=== PATIENT | female | born 1965 | race Caucasian/White ===

== ENCOUNTER 2025-06-19 08:36 | Inpatient (IN) | payer BC ==
[2025-06-19 09:39] LABS: #Basophils 0.03 10x3/uL (0.0-0.2); #Eosinophils 0.03 10x3/uL (0.0-0.5); #Monocytes 0.75 10x3/uL (0.0-1.1); #Neutrophils 8.23 10x3/uL (1.5-8.4); %Basophils 0.3 % (0.0-2.0); %Eosinophils 0.3 % (0.0-6.0); %Lymphocytes 4.8 % (18.0-47.0); %Monocytes 7.9 % (0.0-10.0); %Neutrophils 86.4 % (40.0-75.0); Hematocrit 39.2 % (34.9-44.5); Hemoglobin 13.2 g/dL (12.0-15.5); Mean Corpuscular Hemoglobin 30.8 pg (27.0-33.0); Mean Corpuscular Volume 91.4 fL (81.6-98.3); Platelet Count 327 10x3/uL (150-450); Red Blood Cell (RBC) Count 4.29 10x6/uL (3.90-5.03); White Blood Cell (WBC) Count 9.53 10x3/uL (3.5-10.5)
[2025-06-19 09:56] LABS: ALT (SGPT) 12 U/L (Less than 34); AST (SGOT) 14 U/L (11-34); Albumin 3.6 g/dL (3.1-4.5); Alkaline Phosphatase 63 U/L (40-110); Anion Gap 12 mmol/L (10-20); BUN (Urea Nitrogen) 10 mg/dL (9.8-20.1); Bilirubin, Total 0.6 mg/dL (0.3-1.2); Calc. Creatinine Clearance 0 mL/min (70-130); Calcium 8.2 mg/dL (7.8-10.44); Carbon Dioxide 22 mmol/L (22-29); Chloride 109 mmol/L (98-107); Globulin 2.4 g/dL (2.4-3.5); Glucose 105 mg/dL (70-105); Potassium 4.2 mmol/L (3.5-5.1); Sodium 139 mmol/L (136-145)
[2025-06-19 10:00] LABS: Troponin I Less than 0.010 ng/mL (< 0.028)
[2025-06-19] MEDS ORDERED: Iopamidol 300 61% 100 ML VIAL FS ONE (10:09)
[2025-06-19] MEDS ORDERED: Bisacodyl 10 MG SUPP PR PRN (11:50)
[2025-06-19] MEDS ORDERED: Ondansetron PF 4 MG/2 ML Vial IVP PRN (11:50)
[2025-06-19] MEDS ORDERED: Melatonin 3 MG TAB PO PRN (11:50)
[2025-06-19] MEDS ORDERED: Senokot S 8.6-50 MG TAB PO PRN (11:50)
[2025-06-19] MEDS ORDERED: Acetaminophen 325 MG TAB PO PRN (11:50)
[2025-06-19] MEDS ORDERED: Enoxaparin 80 MG (0.8 mL) SYRINGE ONE (11:56)
[2025-06-19] MEDS ORDERED: Electrolyte Replacement Protocol 1 EACH FS SCH (12:00)
[2025-06-19 13:02] VITALS: BMI 29.0
[2025-06-19] MEDS: PNEUMOC 20-VAL CONJ-DIP CRM/PF 0.5 ML SYRINGE IM ONE (16:20)
[2025-06-19] MEDS: Apixaban 5 MG TAB PO SCH (20:54)
[2025-06-20 03:25] LABS: #Basophils 0.03 10x3/uL (0.0-0.2); #Eosinophils Less than 0.03 10x3/uL (0.0-0.5); #Monocytes 0.89 10x3/uL (0.0-1.1); #Neutrophils 3.59 10x3/uL (1.5-8.4); %Basophils 0.5 % (0.0-2.0); %Eosinophils 0.3 % (0.0-6.0); %Lymphocytes 20.9 % (18.0-47.0); %Monocytes 15.5 % (0.0-10.0); %Neutrophils 62.5 % (40.0-75.0); Hematocrit 36.7 % (34.9-44.5); Hemoglobin 12.3 g/dL (12.0-15.5); Mean Corpuscular Hemoglobin 30.1 pg (27.0-33.0); Mean Corpuscular Volume 89.7 fL (81.6-98.3); Platelet Count 313 10x3/uL (150-450); Red Blood Cell (RBC) Count 4.09 10x6/uL (3.90-5.03); White Blood Cell (WBC) Count 5.75 10x3/uL (3.5-10.5)
[2025-06-20 03:40] LABS: Anion Gap 12 mmol/L (10-20); BUN (Urea Nitrogen) 9 mg/dL (9.8-20.1); Calc. Creatinine Clearance 85 mL/min (70-130); Calcium 8.5 mg/dL (7.8-10.44); Carbon Dioxide 22 mmol/L (22-29); Chloride 109 mmol/L (98-107); Glucose 93 mg/dL (70-105); Magnesium 2.1 mg/dL (1.6-2.6); Potassium 3.7 mmol/L (3.5-5.1); Sodium 139 mmol/L (136-145)
[2025-06-20 15:41] LABS: Troponin I Less than 0.010 ng/mL (< 0.028)
[2025-06-20 18:17] LABS: Troponin I Less than 0.010 ng/mL (< 0.028)
[2025-06-20 20:30] VITALS: BP 138/87; TEMP 98.3
== END 2025-06-20 20:38 | disposition home or self-care (01) | DRG 176 ==
LOC: CSHERS 08:36 → EDSEX 08:36 → CSHTELE 12:10
PROVIDERS: ADMIT Family Medicine; ATTEND Family Medicine
DX: I26.99 Other pulmonary embolism without acute cor pulmonale (principal); Z98.890 Other specified postprocedural states; Z90.49 Acquired absence of other specified parts of digestive tract; Z83.2 Family history of diseases of the blood and blood-forming organs and certain disorders involving the immune mechanism; Z82.0 Family history of epilepsy and other diseases of the nervous system; R55 Syncope and collapse; Z72.0 Tobacco use; E86.0 Dehydration
CPT/HCPCS: 36415; 36416; 71045; 71275; 80048; 80053; 83735; 84100; 84484; 85025; 85379; 87426; 93005; 93306; 96372; J1650; Q9967